=== PATIENT | female | born 1955 | race Caucasian/White ===

== ENCOUNTER 2017-07-06 15:26 | Outpatient (CLI) | payer BC, OTHER ==
--- NOTE | 2017-07-09 11:25 | DEXA Report ---
DEXA SCAN: 07/06/2017 CLINICAL INDICATION: Osteoporosis. TECHNIQUE: Dual energy x-ray absorptiometry (DXA) was performed on a [employer] system. Regions measured are the AP spine, femoral neck, and, if needed, forearm. COMPARISON: None. In accordance with the International Society for Clinical Densitometry (ISCD) guidelines, data from previous exams may be reanalyzed using current recommendations and techniques. This is done to allow a more accurate basis for comparison with the current study. FINDINGS The data for the lumbar spine is as follows: REGION BMD (g/cm/cm) T-SCORE Z-SCORE L1 0.642 -4.1 -2.3 L2 0.792 -3.4 -1.6 L3 0.848 -2.9 -1.2 L4 0.785 -3.5 -1.7 TOTAL 0.772 -3.4 -1.6 NOTE: All evaluable vertebrae are used for classification. The data for the hip is as follows: REGION BMD (g/cm/cm) T-SCORE Z-SCORE Neck 0.646 -2.8 -1.2 TOTAL 0.718 -2.3 -1.0 NOTE: The femoral neck or total proximal femur, whichever is lowest, is used for classification. IMPRESSION: THE WHO CLASSIFICATION BASED ON THE INTERNATIONAL REFERENCE STANDARD IS OSTEOPOROSIS. THE FRACTURE RISK IS HIGH. RECOMMENDATION: Patients with diagnosis of osteoporosis or osteopenia should have regular bone mineral density assessment. For those eligible for Medicare, routine testing is allowed once every 2 years. Testing frequency can be increased for patients who have rapidly progressing disease or for those who are receiving medical therapy to restore bone mass. COMMENT: World Health Organization (WHO) definitions for osteoporosis and osteopenia: NORMAL BMD: T-score at -1.0 or higher, fracture risk is low. OSTEOPENIA BMD: T-score between -1.0 and -2.5, fracture risk is increased. OSTEOPOROSIS BMD: T-score at -2.5 or lower, fracture risk high. National Osteoporosis Foundation recommends: 1. Obtain adequate dietary calcium (at least 1200 mg per day) and vitamin D (400 -800 international units per day). 2. Participate, as appropriate, in regular weightbearing and muscle- strengthening exercise. 3. Avoid tobacco use and reduce alcohol and caffeine intake. 4. For more detailed information see the website at www.NOF.org. MTDD
== END 2017-07-06 15:27 | disposition home or self-care (01) ==
LOC: DI 15:26
PROVIDERS: ATTEND Internal Medicine
DX: M81.0 Age-related osteoporosis without current pathological fracture (principal)
CPT/HCPCS: 77080

== ENCOUNTER 2017-09-17 08:00 | Outpatient (CLI) | payer OTHER ==
[2017-09-17 19:06] LABS: CREATININE 0.7 mg/dL (0.4-1.0)
== END 2017-09-17 08:01 | disposition home or self-care (01) ==
LOC: LAB.F 08:00
PROVIDERS: ATTEND Internal Medicine
DX: L01.00 Impetigo, unspecified (principal); R10.13 Epigastric pain; M81.0 Age-related osteoporosis without current pathological fracture; R07.9 Chest pain, unspecified
CPT/HCPCS: 36415; 82533; 82565

== ENCOUNTER 2017-09-19 13:31 | Outpatient (CLI) | payer OTHER ==
[2017-09-19] MEDS ORDERED: ALBUTEROL NEB 2.5 MG/3 ML INH ONE (15:00)
== END 2017-09-19 13:32 | disposition home or self-care (01) ==
LOC: RT 13:31
PROVIDERS: ATTEND Internal Medicine
DX: J44.9 Chronic obstructive pulmonary disease, unspecified (principal)
CPT/HCPCS: 94060; J7613

== ENCOUNTER 2019-08-08 14:51 | Outpatient (CLI) | payer BC, OTHER ==
--- NOTE | 2019-08-11 11:51 | Mammography Report ---
Reason: ROUTINE MAMMO Procedure Date: 08/08/2019 Accession Number: [id number] / [id number] Procedure: MGS - Screening Mammo Dig Bilat CPT Code: FULL RESULT: EXAM: Screening Mammo Dig Bilat DATE: 08/08/2019 3:10 PM CLINICAL HISTORY: Routine screening TECHNIQUE: (B) - Bilateral CC and MLO views were obtained. COMPARISON: 01/21/2016, 07/05/2010, 06/22/2010 PARENCHYMAL PATTERN: (VD) - The breasts demonstrate extremely dense parenchyma bilaterally, limiting the sensitivity of mammography. FINDINGS: Left breast: No significant interval change. There are no suspicious masses, calcifications, or areas of distortion. Right breast: New punctate slightly pleomorphic upper outer quadrant calcifications approximately 8 to 9 cm from the nipple associated with ill-defined asymmetric increased soft tissue density. Possible additional calcifications more anterior right breast MLO projection only. Additional area of asymmetric soft tissue seen in the medial right breast CC projection only. IMPRESSION: Incomplete examination. BI-RADS category 0. Needs additional spot compression, magnification, and true lateral views right breast. Possible ultrasound. Negative left breast. RECOMMENDATION: (ADDMU) - Additional views using both Mammography and Ultrasound recommended. Right breast BI-RADS CATEGORY: (0) - Incomplete Examination - need additional evaluation. STANDARD QUALIFYING STATEMENTS: 1. This examination was not reviewed with the aid of Computer-Aided Detection (CAD). 2. A negative or benign imaging report should not preclude biopsy if clinically suspicious findings are present. 3. Dense breasts may obscure an underlying neoplasm. 4. This examination was reviewed without the aid of 3D breast imaging (tomosynthesis).
== END 2019-08-08 14:52 | disposition home or self-care (01) ==
LOC: DI.S 14:51
PROVIDERS: ATTEND Internal Medicine
DX: Z12.31 Encounter for screening mammogram for malignant neoplasm of breast (principal); R92.1 Mammographic calcification found on diagnostic imaging of breast; R92.8 Other abnormal and inconclusive findings on diagnostic imaging of breast
CPT/HCPCS: 77067

== ENCOUNTER 2019-08-21 14:45 | Outpatient (CLI) | payer BC, OTHER ==
--- NOTE | 2019-08-21 16:27 | Mammography Report ---
Reason: ABNORMAL MAMMOGRAM Procedure Date: 08/21/2019 Accession Number: [id number] / [id number] Procedure: BIANKA - Diag Special Views Dig RT CPT Code: Final Report FULL RESULT: EXAM: Diag Special Views Dig RT DATE: 08/21/2019 3:45 PM CLINICAL HISTORY: Diagnostic examination. The patient is recalled from screening for TECHNIQUE: (R) - Right focused right breast ultrasound is performed. Right spot magnified CC, spot CC, spot magnified MLO and right ML images are obtained. COMPARISON: 08/08/2019 through 06/22/2010. PARENCHYMAL PATTERN: (VD) - The breast(s) demonstrate(s) extremely dense parenchyma, limiting the sensitivity of mammography. FINDINGS: The partially obscured irregular nodule with associated architectural distortion and internal grouping of pleomorphic calcifications is isodense to the nearby hyperdense breast when compared to the contralateral breast cone or medial ipsilateral breast tissue and measures at least 1.8 cm with mammographic appearance concerning for infiltrative extension. Ultrasound of the upper outer quadrant nodule demonstrates hypoechoic wider than tall irregular appearing 1.3 x 0.8 x 2.1 cm mass in the axillary tail at 10:00 approximately 9 cm from the nipple amenable to ultrasound-guided core biopsy. The previously seen increasing one view asymmetry along the anterior medial breast essentially resolves with spot views and is not focally identifiable tomographically. Focused ultrasound of this region demonstrates no suspicious mass or distortion. IMPRESSION: Suspicious findings. BI-RADS category 4. RECOMMENDATION: (BIOPSY) - right breast upper outer quadrant ultrasound guided. BI-RADS CATEGORY: (4) - Suspicious. STANDARD QUALIFYING STATEMENTS: 1. This examination was not reviewed with the aid of Computer-Aided Detection (CAD). 2. A negative or benign imaging report should not preclude biopsy if clinically suspicious findings are present. 3. Dense breasts may obscure an underlying neoplasm. 4. This examination was reviewed with the aid of 3D breast imaging (tomosynthesis).
== END 2019-08-21 14:46 | disposition home or self-care (01) ==
LOC: DI 14:45
PROVIDERS: ATTEND Internal Medicine
DX: R92.8 Other abnormal and inconclusive findings on diagnostic imaging of breast (principal)
CPT/HCPCS: 76642

== ENCOUNTER 2019-09-02 10:13 | Outpatient (CLI) | payer BC, OTHER ==
[2019-09-02] MEDS ORDERED: BUFFERED LIDOCAINE 10 ML SYRINGE ONE (10:35)
[2019-09-02] MEDS ORDERED: BUPIVACAINE 0.5%-EPI 1:200000 PF 10 ML VIAL ONE (10:36)
[2019-09-02] MEDS ORDERED: BUFFERED LIDOCAINE 10 ML SYRINGE IU ONE (12:15)
[2019-09-02] MEDS ORDERED: BUPIVACAINE 0.5%-EPI 1:200000 PF 10 ML VIAL SUBQ ONE (12:15)
--- NOTE | 2019-09-02 12:56 | Ultrasound Report ---
Reason: ABNORMAL MAMMOGRAM Procedure Date: 09/02/2019 Accession Number: [id number] / [id number] Procedure: US - Biopsy Breast Core CPT Code: Final Report FULL RESULT: PROCEDURE: Ultrasound-guided needle biopsy right breast mass. CLINICAL DATA: Targeted mass measuring up to 2.1 cm with irregular margins in the 10 o'clock axis of the right breast. Informed consent was obtained. Using standard aseptic technique, both 1% buffered lidocaine and Sensorcaine were injected into the right breast for local anesthesia. A small valeria was made in the skin with a #11 blade. A 12-gauge [employer] vacuum-assisted device was used to obtain 3 specimens. A specialized biopsy marker clip was placed adjacent to the mass under ultrasound guidance. Clip positioning within the mass was not feasible as the mass was probably too hard for the marker clip delivery device to penetrate. The patient was taken to separate mammography machine and a two-view digital mammography was performed to verify the clip placement and any complications. The mammography showed concordant clip positioning with the clip located just anteriorly to the mass. The wound was dressed and ice applied. The patient was observed for approximately 15 minutes, then was discharged from diagnostic imaging Department in good condition following instructions on wound care and obtaining biopsy results. The patient is scheduled to receive the biopsy results from the referring physician. The tissue was sent for histologic analysis. IMPRESSION: Ultrasound-guided biopsy of the right breast. AN ADDENDUM WILL BE MADE TO THIS REPORT WHEN PATHOLOGY IS REVIEWED TO ESTABLISH CONCORDANCE.
== END 2019-09-02 10:14 | disposition home or self-care (01) ==
LOC: DI 10:13
PROVIDERS: ATTEND Internal Medicine
DX: C50.411 Malignant neoplasm of upper-outer quadrant of right female breast (principal); Z17.1 Estrogen receptor negative status [ER-]
CPT/HCPCS: 19083

== ENCOUNTER 2020-08-17 09:48 | Outpatient (CLI) | payer MEDICARE, OTHER ==
--- NOTE | 2020-08-17 14:46 | DEXA Report ---
PROCEDURE: Dexa Spine and/or Hip INDICATIONS: OSTEOPOROSIS TECHNIQUE: Dual energy x-ray absorptiometry (DXA) was performed on a [employer] System. Regions measur ed are the AP Spine, femoral neck, and if needed forearm. COMPARISON: 07/06/2017. FINDINGS: Lumbar Spine: Bone Mineral Density 0.72 g/cm/cm,T score -3.3, osteoporosis Left Hip: Bone Mineral Density 0.761 g/cm/cm,T score -2.0, osteopenia Left Femoral Neck: Bone Mineral Density 0.698 g/cm/cm, T score -2.4, osteopenia (T score greater or equal to -1.0: NORMAL) (T score from -1.1 to -2.4: OSTEOPENIA) (T score less than or equal to -2.5 to: OSTEOPOROSIS) Impression: Osteoporosis. Bone mineral density has improved slightly compared to 07/06/2017. Patients with diagnosis of osteoporosis or osteopenia should have regular bone mineral density assess ment. For those eligible for Medicare, routine testing is allowed once every 2 years. Testing frequ ency can be increased for patients who have rapidly progressing disease or for those who are receivin g medical therapy to restore bone mass. Reviewed by: Madeline Jackson MD, PhD on 08/17/2020 2:44 PM PST Approved by: Madeline Jackson MD, PhD on 08/17/2020 2:44 PM PST Station ID: [id number]
== END 2020-08-17 09:49 | disposition home or self-care (01) ==
LOC: DI 09:48
PROVIDERS: ATTEND Internal Medicine
DX: M81.0 Age-related osteoporosis without current pathological fracture (principal)
CPT/HCPCS: 77080

== ENCOUNTER 2020-11-01 11:38 | Outpatient (CLI) | payer MEDICARE, OTHER ==
--- NOTE | 2020-11-01 13:09 | CT Report ---
PROCEDURE: CHEST WO INDICATIONS: R BREAST CA TECHNIQUE: Noncontrast 5 mm thick sections acquired from the pulmonary apices to the posterior costophrenic angl es. 7 mm thick coronal and sagittal MIP reformats were then acquired. For radiation dose reduction, the following was used: automated exposure control, adjustment of mA and/or kV according to patient size. COMPARISON: None FINDINGS: Image quality: Excellent. Lungs and pleura: Biapical scarring is seen. Moderate centrilobular emphysema is noted. 7 x 3 mm oval nodule involving right minor fissure series 4 image 143. Dependent atelectasis/scarring in posterior lateral periphery of bilateral mid to lower lung ayers are seen. No other pulmonary nodule or mass is identified. No pleural effusions or pneumothorax. Central and peripheral airways are patent and n ormal in caliber. Mediastinum: Heart size is normal. No pericardial effusion. No mediastinal adenopathy by size crit eria. Mild atherosclerotic calcifications are seen. Thoracic aorta and central pulmonary arteries ar e normal in size. Esophagus is normal in caliber. No hiatal hernia. Bones and chest wall: No suspicious bony lesions. Chronic-appearing anterior wedge compression defor mities at T6 and T7 levels are seen with up to 60% loss of T7 vertebral body height anteriorly. Surgi rell clips are noted in right axilla and right breast. No axillary or supraclavicular adenopathy by si ze criteria. The thyroid is normal in size. Abdomen: Visualized upper abdominal solid organs and bowel loops appear normal in the absence of con trast. IMPRESSION: 1. 7 x 3 mm oval soft tissue density nodule involving right minor fissure which may represent intrafi ssural lymph node. Follow-up CT chest study in 6-12 months is recommended. 2. Moderate centrilobular emphysema and biapical scarring. Bilateral lower lung field scattered scarr ing/atelectasis. Airway is patent. 3. Mild atherosclerotic disease. No mediastinal or hilar lymphadenopathy. 4. Chronic-appearing anterior wedge compression deformities at T6 and T7 levels. Mild to moderate kyp hosis centered at T7 level. Reviewed by: Michael Hennessy MD on 11/01/2020 1:08 PM PST Approved by: Michael Hennessy MD on 11/01/2020 1:08 PM PST Station ID: [id number]
== END 2020-11-01 11:39 | disposition home or self-care (01) ==
LOC: DI 11:38
PROVIDERS: ATTEND Internal Medicine
DX: Z12.2 Encounter for screening for malignant neoplasm of respiratory organs (principal); J43.2 Centrilobular emphysema; J98.11 Atelectasis; R91.1 Solitary pulmonary nodule; I70.90 Unspecified atherosclerosis
CPT/HCPCS: 71250

== ENCOUNTER 2020-11-17 09:25 | Outpatient (CLI) | payer MEDICARE, OTHER ==
--- NOTE | 2020-11-17 14:34 | Mammography Report ---
BILATERAL DIGITAL DIAGNOSTIC MAMMOGRAM 3D/2D: 11/17/2020 CLINICAL: Post right lumpectomy. Comparison is made to exams dated: 09/02/2019 mammogram, 08/21/2019 mammogram, 08/08/2019 mammogram, and 01/21/2016 mammogram - [facility]. The tissue of both breasts is heterogeneously dense. This may lower the sensitivity of mammography. There are surgical clips in the right breast at 11 o'clock posterior depth. This correlates with altagracia avis. There is architectural distortion, a post-surgical scar, skin retraction, thickening, and trab ecular thickening associated with the surgical clips. No other significant masses, calcifications, or other findings are seen in either breast. IMPRESSION: BENIGN There is no mammographic evidence of malignancy. A 1 year screening mammogram is recommended. This exam was interpreted at Station ID: [id number]. NOTE: For mammograms, a report in lay terms will be sent to the patient. Approximately 15% of breast malignancies will not be visualized mammographically. In the management of a palpable breast mass, a negative mammogram must not discourage biopsy of a clinically suspicious lesion. Electronically Signed By: Noel Moreno M.D. ddp/penrad:11/17/2020 10:12:49 ACR BI-RADS Category 2: Benign Finding(s) 3342F PARENCHYMAL PATTERN: (D) - The breast(s) demonstrate(s) heterogeneously dense fibroglandular khadar barcenas. BI-RADS CATEGORY: (2) - 2 RECOMMENDATION: (ANNUAL) - Recommend routine annual screening mammography. [id number] 1 year screening LATERALITY: (B)
== END 2020-11-17 09:26 | disposition home or self-care (01) ==
LOC: DI 09:25
PROVIDERS: ATTEND Internal Medicine
DX: Z08 Encounter for follow-up examination after completed treatment for malignant neoplasm (principal); C50.411 Malignant neoplasm of upper-outer quadrant of right female breast

== ENCOUNTER 2020-12-16 08:38 | Outpatient (CLI) | payer MEDICARE, OTHER ==
--- NOTE | 2020-12-16 09:31 | Ultrasound Report ---
PROCEDURE: Abdomen Limited INDICATIONS: EPIGASTRIC PAIN TECHNIQUE: Real-time focused scanning was performed of the abdomen, with image documentation. COMPARISON: Correlation with 11/01/[address] FINDINGS: Increased hepatic parenchymal echogenicity. Mildly coarsened hepatic echotexture. Normally distended gallbladder without wall thickening, sludge, or shadowing gallstone. No pericholecystic fl uid. The common hepatic and common bile ducts measure approximately 5 mm at the stefano hepatis. Visual ized portions of the pancreas and right kidney are within normal limits. IMPRESSION: Mildly increased hepatic parenchymal echogenicity and echotexture, nonspecific findings suggestive of a diffuse hepatocellular process, such as steatohepatitis or viral hepatitis. Reviewed by: Eduard Lopez MD on 12/16/2020 9:30 AM PST Approved by: Eduard Lopez MD on 12/16/2020 9:30 AM PST Station ID: [id number]
== END 2020-12-16 08:39 | disposition home or self-care (01) ==
LOC: DI 08:38
PROVIDERS: ATTEND Surgery
DX: R10.13 Epigastric pain (principal)

== ENCOUNTER 2020-12-17 12:57 | Day surgery (SDC) | payer MEDICARE, OTHER ==
[2020-12-17] MEDS ORDERED: LACTATED RINGERS 1,000 ML IV ONE ×2 (13:33→15:20)
--- NOTE | 2020-12-17 13:39 | ANESTHESIA ---
Pre-Anesthesia VS, & Labs - Diagnosis blood in stools - Procedure colonoscopy Vital Signs: Temp Pulse Resp BP Pulse Ox 36.5 C 71 16 131/89 H 97 12/17/20 13:16 12/17/20 13:16 12/17/20 13:16 12/17/20 13:16 12/17/20 13:16 Height: 5 ft Weight (kg): 55 kg Body Mass Index: 23.6 BMI Classification: Healthy weight - NPO >8 hours - Is Patient ?: No Home Medications and Allergies Alendronate [Fosamax] 70 mg PO OAW 10/06/20 Oxycodone HCl/Acetaminophen [Percocet 10-325 mg Tablet] 1 tab PO Q4HR 10/06/20 SUMAtriptan [Imitrex] 50 mg PO DAILY PRN 10/06/20 Temazepam [Restoril] 15 mg PO QDDINNER PRN 10/06/20 Tizanidine HCl [Zanaflex] 2 mg PO BID PRN 10/06/20 oxyCODONE ER [OxyCONTIN] 40 mg PO TID 10/06/20 Allergies/Adverse Reactions: Allergies Allergy/AdvReac Type Severity Reaction Status Date / Time No Known Drug Allergies Allergy Verified 11/24/20 11:07 Anes History & Medical History - Anesthetic History Anesthesia Complications: reports: No previous complications - Medical History Cardiovascular: reports: None Pulmonary: reports: None Gastrointestinal: reports: None Urinary: reports: None Neuro: reports: None Musculoskeletal: reports: Osteoporosis, Chronic back pain Endocrine/Autoimmune: reports: None Blood Disorders: reports: None Skin: reports: None Smoking Status: Former smoker Psychosocial: reports: Opioid History of Cancer?: No - Surgical History Gynecologic: reports: Other (right breast lumpectomy, Left salpingectomy) Exam General: Alert, Oriented x3, Cooperative, No acute distress Dental: Dentures full Upper Mouth Openin Fingerbreadth Neck Mobility: Normal Mallampati classification: II Thyromental Distance: 4-6 cm Mental/Cognitive Status: Alert/Oriented X3, Normal for patient Plan Anesthesia Type: MAC Consent for Procedure(s) Verified and Reviewed: Yes Code Status: Attempt Resuscitation ASA classification: 2-Mild systemic disease Is this case an emergency?: No
[2020-12-17] MEDS ORDERED: PROPOFOL 500 MG/50 ML 500 MG/50 ML VIAL ONE ×2 (14:01→15:14)
[2020-12-17] MEDS ORDERED: LIDOCAINE-MPF 2% 5 ML VIAL ONE (14:03)
[2020-12-17] MEDS ORDERED: fentaNYL 100 MCG/2 ML VIAL ONE (14:04)
[2020-12-17] MEDS ORDERED: ePHEDrine 50 MG/ML VIAL IVP ONE (14:29)
--- NOTE | 2020-12-17 15:21 | ANESTHESIA POST OP EVALUATION ---
Anesthesia Post Eval - Post Anesthesia Eval Vitals: Last Vital Signs Temp 36.5 C 12/17/20 13:16 Pulse 71 12/17/20 13:16 Resp 16 12/17/20 13:16 BP 131/89 H 12/17/20 13:16 Pulse Ox 97 12/17/20 13:16 CV Function Including HR & BP: positive: Stable Pain Control: positive: Satisfactory Nausea & Vomiting: positive: Negative Mental Status: positive: Baseline Respiratory Status: Airway Patent Hydration Status: Satisfactory Anesthesia Complications: positive: None
[2020-12-17 15:33] VITALS: BP 111/80
== END 2020-12-17 12:58 | disposition home or self-care (01) ==
LOC: SDS 12:57
PROVIDERS: ATTEND Surgery
PROC: 0DBK8ZZ Excision of Ascending Colon, Via Natural or Artificial Opening Endoscopic (ICD-10-PCS; principal; 2020-12-17 14:00)
DX: R19.5 Other fecal abnormalities (principal); K63.5 Polyp of colon; Z87.891 Personal history of nicotine dependence; J44.9 Chronic obstructive pulmonary disease, unspecified
CPT/HCPCS: 45385; J7120

== ENCOUNTER 2021-09-24 04:21 | Emergency (ER) | payer MEDICARE, OTHER ==
--- NOTE | 2021-09-24 04:44 | ED Physician Documentation ---
PD HPI NVD - Stated complaint Stated Complaint: VOMITING, CRAMPS - Chief complaint Chief Complaint: Abd Pain - History obtained from History obtained from: Patient - History of Present Illness Timing - onset: Enter time (19:00), Last night Timing - details: Gradual onset, Waxing and waning Pain level now: 6 Associated symptoms: Abdominal pain. No: Fever Contributing factors: No: Sick contact, Bad food, Travel, Recent antibiotics, Alcohol use, Anticoagulated, Diabetes Improved by: Other (no ameliorating factors) Worsened by: Palpation Similar symptoms before: Has not had sx before Recently seen: Not recently seen Review of Systems Constitutional: reports: Reviewed and negative Cardiac: reports: Reviewed and negative Respiratory: reports: Reviewed and negative GI: reports: Abdominal Pain, Nausea, Vomiting. denies: Constipation, Diarrhea, Hematemesis, Bloody / black stool : denies: Dysuria, Frequency PD PAST MEDICAL HISTORY - Past Medical History Cardiovascular: None Respiratory: None Neuro: None Endocrine/Autoimmune: None GI: None SHUTTLE INSPECTOR: None : None HEENT: None Psych: None Musculoskeletal: Osteoporosis Derm: None Other Past Medical History: chronic back pain - Past Surgical History Past Surgical History: Yes /SHUTTLE INSPECTOR: Other - Present Medications Home Medications: Ambulatory Orders Medication Instructions Recorded Confirmed Alendronate [Fosamax] 70 mg PO OAW 10/06/20 05/25/21 Oxycodone HCl/Acetaminophen 1 tab PO Q4HR 10/06/20 05/25/21 [Percocet 10-325 mg Tablet] SUMAtriptan [Imitrex] 50 mg PO DAILY PRN 10/06/20 05/25/21 Temazepam [Restoril] 15 mg PO QDDINNER PRN 10/06/20 05/25/21 Tizanidine HCl [Zanaflex] 2 mg PO BID PRN 10/06/20 05/25/21 oxyCODONE ER [OxyCONTIN] 40 mg PO TID 10/06/20 05/25/21 - Allergies Allergies/Adverse Reactions: Allergies Allergy/AdvReac Type Severity Reaction Status Date / Time No Known Drug Allergies Allergy Verified 09/24/21 04:31 - Social History Does the pt smoke?: No Smoking Status: Former smoker Does the pt drink ETOH?: No Does the pt have substance abuse?: No - Immunizations Immunizations are current?: Yes PD ED PE NORMAL - Vitals Vital signs reviewed: Yes - General General: Alert and oriented X 3, Well developed/nourished, Other (appears uncomfortable ) - HEENT HEENT: Moist mucous membranes - Cardiac Cardiac: RRR, No murmur - Respiratory Respiratory: No respiratory distress, Clear bilaterally - Abdomen Abdomen: Soft, Non distended, Other (mild TTP periumbilical and LLQ) - Back Back: No CVA TTP - Derm Derm: No rash Results - Vitals Vitals: Oxygen O2 Source Room air - Labs Labs: Laboratory Tests 09/24/21 09/24/21 04:45 04:45 WBC 10.6 RBC 4.66 Hgb 14.8 Hct 41.7 MCV 89.5 MCH 31.8 H MCHC 35.5 RDW 12.3 Plt Count 193 MPV 9.1 Neut # (Auto) 8.5 H Lymph # (Auto) 1.4 L Larue # (Auto) 0.4 Eos # (Auto) 0.2 Baso # (Auto) 0.0 Absolute Nucleated RBC 0.00 Nucleated RBC % 0.0 Sodium 139 Potassium 3.5 Chloride 100 L Carbon Dioxide 25 Anion Gap 14.0 H BUN 11 Creatinine 0.8 Estimated GFR (MDRD) 72 L Glucose 144 H Calcium 10.0 Total Bilirubin 0.4 AST 29 ALT 21 Alkaline Phosphatase 51 Total Protein 7.6 Albumin 4.1 Globulin 3.5 Albumin/Globulin Ratio 1.2 Lipase 21 L - Rads (name of study) CT A/P Radiology: Prelim report reviewed, See rad report PD MEDICAL DECISION MAKING - ED course Complexity details: reviewed results, re-evaluated patient, considered differential, d/w patient ED course: c/o abdominal pain that started last night. CT A/P with nonspecific finding of small bowel wall thickening c/w ileitis or partial small bowel obstruction. On reevaluation, patient is awake, alert, and in NAD. She reports resolution of her symptoms after IV toradol and 1mg IV dilaudid. Results reviewed, differential diagnosis discussed. She is comfortable with d/c at this time, instructed to have low threshold for return to ED (worsening symptoms or new, concerning signs/symptoms such as fever, blood in stool). Departure - Departure Disposition: 01 Home, Self Care Clinical Impression: Enteritis Condition: Good Instructions: ED Abdominal Pain Female Non-Specific Abdominal Pain Comments: Your CT scan shows mild thickening of the reeder of the small intestines. Possible causes include enteritis (inflammation of the small intestines, which is usually benign and resolves on its own) and a partial small bowel obstruction (often resolves on its own at home). If your symptoms worsen you should return to the emergency department for reevaluation. Discharge Date/Time: 09/24/21 08:33
[2021-09-24 04:53] LABS: BASOPHILS % (AUTO) 0.4 %; EOSINOPHILS # (AUTO) 0.2 10^3/uL (0.0-0.7); HCT - HEMATOCRIT 41.7 % (37.0-47.0); HGB - HEMOGLOBIN 14.8 g/dL (12.0-16.0); LYMPHOCYTES # (AUTO) 1.4 10^3/uL (1.5-3.5); LYMPHOCYTES % (AUTO) 13.5 %; MEAN CORPUSCULAR HEMOGLOBIN 31.8 pg (27.0-31.0); MEAN CORPUSCULAR HGB CONC 35.5 g/dL (32.0-36.0); MEAN CORPUSCULAR VOLUME 89.5 fL (81.0-99.0); MEAN PLATELET VOLUME 9.1 fL (7.9-10.8); MONOCYTES # (AUTO) 0.4 10^3/uL (0.0-1.0); MONOCYTES % (AUTO) 3.5 %; NEUTROPHILS # (AUTO) 8.5 10^3/uL (1.5-6.6); NEUTROPHILS % (AUTO) 80.2 %; PLT - PLATELET COUNT 193 10^3/uL (130-450); RED BLOOD COUNT 4.66 10^6/uL (4.20-5.40); RED CELL DISTRIBUTION WIDTH 12.3 % (12.0-15.0); WHITE BLOOD COUNT 10.6 x10^3/uL (4.8-10.8)
[2021-09-24] MEDS ORDERED: HYDROmorphone 1 MG/ML CARPUJECT IVP STA (05:04)
[2021-09-24] MEDS ORDERED: KETOROLAC 30 MG/ML VIAL IVP STA (05:04)
[2021-09-24 05:05] LABS: ALBUMIN 4.1 g/dL (3.2-5.5); ALBUMIN/GLOBULIN RATIO 1.2 (1.0-2.2); BILIRUBIN,TOTAL 0.4 mg/dL (0.2-1.0); CREATININE 0.8 mg/dL (0.4-1.0); POTASSIUM 3.5 mmol/L (3.5-5.0); TOTAL PROTEIN 7.6 g/dL (6.7-8.2)
[2021-09-24] MEDS ORDERED: IOPAMIDOL-300 100 ML VIAL ONE (05:24)
[2021-09-24] MEDS ORDERED: IOPAMIDOL-300 100 ML VIAL IVP ONE (05:46)
--- NOTE | 2021-09-24 08:12 | CT Report ---
PROCEDURE: Abdomen/Pelvis W INDICATIONS: LLQ pain CONTRAST: IV CONTRAST: Isovue 300 ml: 100 PO CONTRAST: *NO PO CONTRAST TECHNIQUE: After the administration of IV contrast, 5 mm thick sections acquired from the diaphragms to the symp hysis. 5 mm thick coronal and sagittal reformats were acquired. For radiation dose reduction, the f ollowing was used: automated exposure control, adjustment of mA and/or kV according to patient size. COMPARISON: None. FINDINGS: Image quality: Excellent. ABDOMEN: Lung bases: Moderate emphysema. Lung bases are clear. Heart size is normal. Solid organs: Liver and spleen are normal in size and enhancement. Gallbladder is grossly unremarka ble Biliary system is non dilated. Pancreas enhances normally. No adrenal nodules. Kidneys demons trate normal size and enhancement, without hydronephrosis. Peritoneum and bowel: There are multiple mildly distended small bowel loops throughout the abdomen an d pelvis. Mildly thickened small bowel loops with adjacent interloop mesenteric fluid within the righ t lower quadrant is present. Transition between dilated and nondilated small bowel within the right l ower quadrant (series 7 image 24). Colon is nondistended. Appendix is not seen. No evidence of append icitis. No free fluid or air. Nodes and vessels: No retroperitoneal or mesenteric adenopathy by size criteria. Aorta and inferior vena cava are normal in size. Miscellaneous: No ventral hernias. PELVIS: Genitourinary: Bladder wall thickness is normal. Miscellaneous: No inguinal hernias or adenopathy. Bones: No suspicious bony lesions. No vertebral body compression fractures. IMPRESSION: 1. Small bowel obstruction. 2. Thickened small bowel loops, consistent with ischemia, infection, or inflammation. Underlying neop lasm may also be present. 3. Small amount of adjacent mesenteric fluid. 4. Emphysema. 5. Concordant with preliminary interpretation. Reviewed by: Alberto Talavera MD on 09/24/2021 7:10 AM [facility] Approved by: Alberto Talavera MD on 09/24/2021 7:10 AM [facility] Station ID: [id number]
[2021-09-24 08:33] VITALS: BP 115/70
== END 2021-09-24 08:33 | disposition home or self-care (01) ==
LOC: ED 04:21
DX: K52.9 Noninfective gastroenteritis and colitis, unspecified (principal); K56.600 Partial intestinal obstruction, unspecified as to cause; Z87.891 Personal history of nicotine dependence
CPT/HCPCS: 36415; 74177; 80053; 83690; 85025; 96374; 96375; 99283; 99284; J1170; Q9967

== ENCOUNTER 2022-09-12 08:18 | Outpatient (CLI) | payer MEDICARE, OTHER ==
--- NOTE | 2022-09-12 15:54 | DEXA Report ---
PROCEDURE: Dexa Spine and/or Hip INDICATIONS: OSTEOPOROSIS TECHNIQUE: Dual energy x-ray absorptiometry (DXA) was performed on a [employer] System. Regions measur ed are the AP Spine, femoral neck, and if needed forearm. COMPARISON: DEXA 08/17/2020 FINDINGS: Lumbar Spine: Bone Mineral Density 0.863 g/cm/cm,T score -2.6, compared to -3.3 Left Hip: Bone Mineral Density 0.797 g/cm/cm,T score -1.7, compared to -2.0 Left Femoral Neck: Bone Mineral Density 0.709 g/cm/cm, T score -2.4, unchanged (T score greater or equal to -1.0: NORMAL) (T score from -1.1 to -2.4: OSTEOPENIA) (T score less than or equal to -2.5 to: OSTEOPOROSIS) Impression: Improved bone mineral density within the lumbar spine and left hip, although persistent osteoporosis within the lumbar spine and osteopenia in the left hip. Patients with diagnosis of osteoporosis or osteopenia should have regular bone mineral density assess ment. For those eligible for Medicare, routine testing is allowed once every 2 years. Testing frequ ency can be increased for patients who have rapidly progressing disease or for those who are receivin g medical therapy to restore bone mass. Reviewed by: Obdulia Medina MD on 09/12/2022 3:53 PM PST Approved by: Obdulia Medina MD on 09/12/2022 3:53 PM PST Station ID: [id number]
== END 2022-09-12 08:19 | disposition home or self-care (01) ==
LOC: DI 08:18
PROVIDERS: ATTEND Internal Medicine
DX: M81.0 Age-related osteoporosis without current pathological fracture (principal)

== ENCOUNTER 2023-02-13 13:13 | Outpatient (CLI) | payer MEDICARE, OTHER ==
[2023-02-13] MEDS: ALBUTEROL 1 PUFF INH STA (14:31)
== END 2023-02-13 13:14 | disposition home or self-care (01) ==
LOC: RT 13:13
PROVIDERS: ATTEND Internal Medicine
DX: J44.9 Chronic obstructive pulmonary disease, unspecified (principal)
CPT/HCPCS: 94060; 94729

== ENCOUNTER 2023-03-28 09:26 | Outpatient (CLI) | payer MEDICARE, OTHER ==
--- NOTE | 2023-03-29 12:18 | Mammography Report ---
BILATERAL DIGITAL DIAGNOSTIC MAMMOGRAM 3D/2D: 03/28/2023 CLINICAL: 12 month follow up of the right breast, due for bilateral imaging. Comparison is made to exams dated: 09/11/2022 breast MRI, 03/02/2022 mammogram - [place], 11/17/2020 mammogram - [facility], 10/22/2019 localization, 10/10/2019 mammogram - [place], and 09/02/2019 mammogram - [facility]. Both breasts are heterogeneously dense, which may obscure small masses (category c / 51-75% glandular tissue). There are benign post operative findings in the right breast. No significant masses, calcifications, or other findings are seen in either breast. There has been no significant interval change. IMPRESSION: BENIGN There is no mammographic evidence of malignancy. A 1 year screening mammogram is recommended. This exam was interpreted at Station ID: [id number]. NOTE: For mammograms, a report in lay terms will be sent to the patient. Approximately 15% of breast malignancies will not be visualized mammographically. In the management of a palpable breast mass, a negative mammogram must not discourage biopsy of a clinically suspicious lesion. Electronically Signed By: Miguel [email or web address]:03/28/2023 10:07:31 letter sent: No_Letter ACR BI-RADS Category 2: Benign Finding(s) 3342F PARENCHYMAL PATTERN: (D) - The breast(s) demonstrate(s) heterogeneously dense fibroglandular paranjel barcenas. BI-RADS CATEGORY: (2) - 2 Mammogram [id number] 1 year screening LATERALITY: (B)
== END 2023-03-28 09:27 | disposition home or self-care (01) ==
LOC: DI 09:26
PROVIDERS: ATTEND Internal Medicine
DX: R91.1 Solitary pulmonary nodule (principal); Z85.3 Personal history of malignant neoplasm of breast

== ENCOUNTER 2024-03-24 15:00 | Outpatient (CLI) | payer MEDICARE, OTHER ==
--- NOTE | 2024-03-25 10:54 | Mammography Report ---
BILATERAL DIGITAL SCREENING MAMMOGRAM 3D/2D: 03/24/2024 CLINICAL: Routine screening. Personal history of right breast cancer. Comparison is made to exams dated: 03/28/2023 mammogram - [facility], 03/02/2022 zohaib mogram - [place], 11/17/2020 mammogram - [facility], 10/22/2019 localization, 2018 mammogram - [place], and 09/02/2019 mammogram - [facility]. There are scattered areas of fibroglandular density in both breasts (category b / 25%-50% glandular t issue). There are benign post operative findings in the right breast. No significant masses, calcifications, or other findings are seen in either breast. There has been no significant interval change. IMPRESSION: BENIGN There is no mammographic evidence of malignancy. A 1 year screening mammogram is recommended. This exam was interpreted at Station ID: [id number]. NOTE: For mammograms, a report in lay terms will be sent to the patient. Approximately 15% of breast malignancies will not be visualized mammographically. In the management of a palpable breast mass, a negative mammogram must not discourage biopsy of a clinically suspicious lesion. Electronically Signed By: Damaris [email or web address]/werner:03/24/2024 16:56:11 letter sent: No_Letter ACR BI-RADS Category 2: Benign Finding(s) 3342F PARENCHYMAL PATTERN: (A) - The breast(s) demonstrate(s) scattered fibroglandular densities. BI-RADS CATEGORY: (2) - 2 RECOMMENDATION: (ANNUAL) - Recommend routine annual screening mammography. [id number] 1 year screening LATERALITY: (B)
== END 2024-03-24 15:01 | disposition home or self-care (01) ==
LOC: DI 15:00
DX: Z12.31 Encounter for screening mammogram for malignant neoplasm of breast (principal); R92.323 Mammographic fibroglandular density, bilateral breasts; Z85.3 Personal history of malignant neoplasm of breast